=== PATIENT | male | born 1965 | race Two or more races ===

== ENCOUNTER 2022-03-17 15:16 | Emergency (ER) | payer SELFPAY ==
[~2022-03-17] VITALS: Ht 167.6 cm; Wt 71.0 kg
[2022-03-17 15:21] VITALS: BP 112/69
[2022-03-17] MEDS ORDERED: ATOR20TA PO (15:24)
[2022-03-17] MEDS ORDERED: CLOP-31 PO ×2 (15:24→17:48)
[2022-03-17] MEDS ORDERED: EZET10TA13 PO ×2 (15:24→17:48)
[2022-03-17] MEDS ORDERED: VALS80TA2 PO ×2 (15:24→17:48)
[2022-03-17] MEDS ORDERED: LIP40 PO (17:48)
== END 2022-03-17 18:01 | disposition home or self-care (01) ==
LOC: ER 15:16
DX: Z76.0 Encounter for issue of repeat prescription (principal); I25.2 Old myocardial infarction; I10 Essential (primary) hypertension; E78.00 Pure hypercholesterolemia, unspecified; Z98.890 Other specified postprocedural states
CPT/HCPCS: 99281